=== PATIENT | male | born 1990 | race Hispanic/Latino ===

== ENCOUNTER 2017-09-16 07:09 | Emergency (ER) | payer SELFPAY ==
[~2017-09-16] VITALS: Ht 172.7 cm; Wt 70.0 kg
[2017-09-16] MEDS ORDERED: NAPROSYN500 MG PO (08:23)
[2017-09-16 08:50] VITALS: BP 133/85
== END 2017-09-16 08:50 | disposition home or self-care (01) | DRG 556 ==
LOC: ED 07:09
DX: M25.512 Pain in left shoulder (principal); S50.02XA Contusion of left elbow, initial encounter; V13.4XXA Pedal cycle driver injured in collision with car, pick-up truck or van in traffic accident, initial encounter; Y93.55 Activity, bike riding; Y92.488 Other paved roadways as the place of occurrence of the external cause

== ENCOUNTER 2018-04-01 23:29 | Emergency (ER) | payer SELFPAY ==
[~2018-04-01] VITALS: Ht 172.7 cm; Wt 79.2 kg
[~2018-04-01 23:29] MED LIST: NAPROSYN500 MG PO
[2018-04-01] MEDS ORDERED: TRAMADOL HCL50 MG PO (23:50)
[2018-04-02 00:01] VITALS: BP 139/71
== END 2018-04-02 00:01 | disposition home or self-care (01) | DRG 395 ==
LOC: ED 23:29
DX: K40.90 Unilateral inguinal hernia, without obstruction or gangrene, not specified as recurrent (principal); F17.210 Nicotine dependence, cigarettes, uncomplicated

== ENCOUNTER 2018-05-01 07:23 | Day surgery (SDC) | payer SELFPAY ==
[~2018-05-01] VITALS: Ht 172.7 cm; Wt 88.5 kg
[~2018-05-01 07:23] MED LIST changes: +TRAMADOL HCL50 MG PO
[2018-05-01] MEDS ORDERED: TORADOL PO (10:56)
[2018-05-01 12:01] VITALS: BP 112/65
== END 2018-05-01 12:00 | disposition home or self-care (01) | DRG 352 ==
LOC: ORM 07:23
PROVIDERS: ATTEND Surgery
PROC: 0YU60JZ Supplement Left Inguinal Region with Synthetic Substitute, Open Approach (ICD-10-PCS; principal; 2018-05-01)
DX: K40.90 Unilateral inguinal hernia, without obstruction or gangrene, not specified as recurrent (principal)

== ENCOUNTER 2019-08-03 20:16 | Emergency (ER) | payer SELFPAY ==
[~2019-08-03] VITALS: Ht 172.7 cm; Wt 89.0 kg
[~2019-08-03 20:16] MED LIST changes: +TORADOL PO
[2019-08-03] MEDS ORDERED: ZPAK PO (20:43)
[2019-08-03 20:50] VITALS: BP 143/89
== END 2019-08-03 20:50 | disposition home or self-care (01) | DRG 153 ==
LOC: ED 20:16
DX: J00 Acute nasopharyngitis [common cold] (principal); J32.9 Chronic sinusitis, unspecified

== ENCOUNTER 2020-01-01 | Emergency (ER) | payer SELFPAY ==
[~2020-01-01] MED LIST changes: +ZPAK PO
[2020-01-01] MEDS ORDERED: TAM75CAP PO (21:12)
--- NOTE | 2020-01-05 12:04 | NUR ---
Attempt to call COVID 19 results to patient. No answer.
--- NOTE | 2020-01-05 16:58 | NUR ---
Attempt to call COVID 19 results to patient. No answer.
--- NOTE | 2020-01-05 17:16 | NUR ---
Received call from Man. NATASHAID 19 results reported to patient. Encouraged Stay home - stay safe measures, frequent hand washing/hand sanitizing if necessary outings.
== END 2020-01-01 21:25 | disposition home or self-care (01) | DRG 153 ==
DX: J11.1 Influenza due to unidentified influenza virus with other respiratory manifestations (principal); Z20.828 Contact with and (suspected) exposure to other viral communicable diseases

== ENCOUNTER 2020-02-23 10:16 | Emergency (ER) | payer SELFPAY ==
[~2020-02-23 10:16] MED LIST changes: +TAM75CAP PO
[2020-02-23] MEDS ORDERED: ULTRAM50 M1 PO (11:53)
[2020-02-23] MEDS ORDERED: FLEXERIL PO (11:53)
[2020-02-23 12:21] VITALS: BP 118/78
== END 2020-02-23 12:07 | disposition home or self-care (01) | DRG 552 ==
LOC: ED 10:16
DX: M47.816 Spondylosis without myelopathy or radiculopathy, lumbar region (principal)

== ENCOUNTER 2020-12-07 10:45 | Emergency (ER) | payer OTHER ==
[~2020-12-07] VITALS: Ht 172.7 cm; Wt 88.0 kg
[~2020-12-07 10:45] MED LIST changes: +FLEXERIL PO; +ULTRAM50 M1 PO
[2020-12-07] MEDS ORDERED: TAM75CAP PO (11:32)
[2020-12-07 11:37] VITALS: BP 124/77
== END 2020-12-07 11:47 | disposition home or self-care (01) | DRG 153 ==
LOC: ED 10:45
DX: J11.1 Influenza due to unidentified influenza virus with other respiratory manifestations (principal); J45.909 Unspecified asthma, uncomplicated; Z20.822 Contact with and (suspected) exposure to COVID-19

== ENCOUNTER 2021-05-14 15:17 | Emergency (ER) | payer BC ==
[~2021-05-14] VITALS: Ht 172.7 cm; Wt 80.0 kg
[2021-05-14] MEDS ORDERED: BACLOFEN10 MG PO (16:29)
[2021-05-14 17:00] VITALS: BP 131/79
== END 2021-05-14 17:00 | disposition home or self-care (01) | DRG 552 ==
LOC: ED 15:17
DX: M47.816 Spondylosis without myelopathy or radiculopathy, lumbar region (principal); J45.909 Unspecified asthma, uncomplicated

== ENCOUNTER 2021-08-03 13:35 | Emergency (ER) | payer BC ==
[~2021-08-03] VITALS: Ht 172.7 cm; Wt 90.5 kg
[~2021-08-03 13:35] MED LIST changes: +BACLOFEN10 MG PO
[2021-08-03 16:25] LABS: HEMATOCRIT 43.8 % (39.0-50.0); HEMOGLOBIN 14.5 g/dl (14.0-18.0); MEAN CELL VOLUME 92.2 fL CALC (80.0-100.0); MEAN CORPUSCULAR HGB 30.5 pG CALC (26.0-32.0); MEAN CORPUSCULAR HGB CONC 33.1 g/dL CAL (32.0-36.0); NEUT# 6.11 thou/uL (1.82-7.42); RED BLOOD COUNT 4.75 mill/uL (4.70-6.10); RED CELL DISTRI WIDTH 13.4 % (11.5-15.5)
[2021-08-03 16:28] LABS: URINE BILIRUBIN - DIPSTICK NEGATIVE (NEGATIVE); URINE BLOOD DIPSTICK NEGATIVE (NEGATIVE); URINE COLOR YELLOW; URINE GLUCOSE - DIPSTICK NEGATIVE (NEGATIVE); URINE KETONE NEGATIVE (NEGATIVE); URINE LEUK ESTERASE NEGATIVE (NEGATIVE); URINE PH 7.5 (4.5-8.0); URINE PROTEIN - DIPSTICK NEGATIVE (NEG-TRACE); URINE UROBILINOGEN - DIPSTICK 0.2 E.U./dL (0.2)
[2021-08-03 16:35] LABS: ALBUMIN 4.3 g/dL (3.2-5.0); ALKALINE PHOSPHATASE 94 u/l (38-126); AMYLASE 77 u/l (30-110); ANION GAP 10 (6-22 (CALC)); BILIRUBIN, TOTAL 0.4 mg/dL (0.0-1.4); BUN 10 mg/dL (9-20); BUN/CREATININE RATIO 13 (12-20 (CALC)); CARBON DIOXIDE 28 mmol/l (22-30); CHLORIDE 105 mmol/l (95-108); CREATININE 0.8 mg/dL (0.7-1.3); GFR > 60 ML/MIN (>=60 (CALC)); GFR FOR AFR.AMER. > 60 ML/MIN (>=60 (CALC)); LIPASE 42 u/l (23-300); POTASSIUM 3.9 mmol/l (3.5-5.1); SGOT/AST 30 u/l (17-59); SODIUM 138 mmol/l (137-146); TOTAL PROTEIN 7.8 g/dL (6.3-8.2)
[2021-08-03 16:54] LABS: URINE NITRITE - DIPSTICK NEGATIVE (Negative)
[2021-08-03 17:57] VITALS: BP 124/62
== END 2021-08-03 17:57 | disposition home or self-care (01) | DRG 392 ==
LOC: ED 13:35
DX: R10.32 Left lower quadrant pain (principal); J45.909 Unspecified asthma, uncomplicated
CPT/HCPCS: Q9967

== ENCOUNTER 2022-01-11 14:30 | Emergency (ER) | payer BC ==
[2022-01-11] VITALS (8 sets, daily range): BP systolic 96–124; BP diastolic 43–105
[~2022-01-11] VITALS: Ht 172.7 cm; Wt 90.9 kg
[2022-01-11 15:49] LABS: HEMATOCRIT 44.2 % (39.0-50.0); HEMOGLOBIN 14.3 g/dl (14.0-18.0); IMMATURE GRANULOCYTES 0.1 % (0.0-5.0); MEAN CELL VOLUME 90.9 fL CALC (80.0-100.0); MEAN CORPUSCULAR HGB 29.4 pG CALC (26.0-32.0); MEAN CORPUSCULAR HGB CONC 32.4 g/dL CAL (32.0-36.0); NEUT# 7.09 thou/uL (1.82-7.42); RED BLOOD COUNT 4.86 mill/uL (4.70-6.10)
[2022-01-11 15:56] LABS: URINE BILIRUBIN - DIPSTICK NEGATIVE (NEGATIVE); URINE BLOOD DIPSTICK NEGATIVE (NEGATIVE); URINE COLOR YELLOW; URINE GLUCOSE - DIPSTICK NEGATIVE (NEGATIVE); URINE KETONE NEGATIVE (NEGATIVE); URINE LEUK ESTERASE NEGATIVE (NEGATIVE); URINE PROTEIN - DIPSTICK NEGATIVE (NEG-TRACE); URINE SPECIFIC GRAVITY 1.025; URINE UROBILINOGEN - DIPSTICK 0.2 E.U./dL (0.2)
[2022-01-11 15:59] LABS: URINE NITRITE - DIPSTICK NEGATIVE (Negative)
[2022-01-11 16:07] LABS: ALBUMIN 4.4 g/dL (3.2-5.0); ALKALINE PHOSPHATASE 85 u/l (38-126); ANION GAP 9 (6-22 (CALC)); BILIRUBIN, TOTAL 0.3 mg/dL (0.0-1.4); BUN 13 mg/dL (9-20); BUN/CREATININE RATIO 16 (12-20 (CALC)); CARBON DIOXIDE 27 mmol/l (22-30); CHLORIDE 104 mmol/l (95-108); CREATININE 0.8 mg/dL (0.7-1.3); GFR > 60 ML/MIN (>=60 (CALC)); GFR FOR AFR.AMER. > 60 ML/MIN (>=60 (CALC)); LIPASE 49 u/l (23-300); SGOT/AST 28 u/l (17-59); SODIUM 136 mmol/l (137-146); TOTAL PROTEIN 7.6 g/dL (6.3-8.2)
[2022-01-11] MEDS ORDERED: ULTRAM50 MG PO (18:11)
== END 2022-01-11 18:42 | disposition home or self-care (01) | DRG 392 ==
LOC: ED 14:30
DX: R10.32 Left lower quadrant pain (principal); J45.909 Unspecified asthma, uncomplicated
CPT/HCPCS: Q9967

== ENCOUNTER 2022-02-05 14:26 | Emergency (ER) | payer BC ==
[~2022-02-05] VITALS: Ht 172.7 cm; Wt 94.0 kg
[~2022-02-05 14:26] MED LIST changes: +ULTRAM50 MG PO
[2022-02-05 15:10] LABS: HEMATOCRIT 47.2 % (39.0-50.0); HEMOGLOBIN 15.4 g/dl (14.0-18.0); IMMATURE GRANULOCYTES 0.1 % (0.0-5.0); MEAN CELL VOLUME 91.3 fL CALC (80.0-100.0); MEAN CORPUSCULAR HGB 29.8 pG CALC (26.0-32.0); MEAN CORPUSCULAR HGB CONC 32.6 g/dL CAL (32.0-36.0); NEUT# 3.61 thou/uL (1.82-7.42); RED BLOOD COUNT 5.17 mill/uL (4.70-6.10)
[2022-02-05 15:26] LABS: ALBUMIN 4.7 g/dL (3.2-5.0); ALKALINE PHOSPHATASE 114 u/l (38-126); ANION GAP 16 (6-22 (CALC)); BILIRUBIN, TOTAL 0.4 mg/dL (0.0-1.4); BUN 15 mg/dL (9-20); BUN/CREATININE RATIO 17 (12-20 (CALC)); CARBON DIOXIDE 22 mmol/l (22-30); CHLORIDE 106 mmol/l (95-108); CREATININE 0.9 mg/dL (0.7-1.3); GFR > 60 ML/MIN (>=60 (CALC)); GFR FOR AFR.AMER. > 60 ML/MIN (>=60 (CALC)); LIPASE 48 u/l (23-300); POTASSIUM 3.7 mmol/l (3.5-5.1); SGOT/AST 48 u/l (17-59); SODIUM 140 mmol/l (137-146); TOTAL PROTEIN 8.6 g/dL (6.3-8.2)
[2022-02-05 16:11] LABS: URINE BILIRUBIN - DIPSTICK NEGATIVE (NEGATIVE); URINE BLOOD DIPSTICK NEGATIVE (NEGATIVE); URINE COLOR YELLOW; URINE GLUCOSE - DIPSTICK NEGATIVE (NEGATIVE); URINE KETONE NEGATIVE (NEGATIVE); URINE LEUK ESTERASE NEGATIVE (NEGATIVE); URINE PROTEIN - DIPSTICK TRACE mg/dL (NEG-TRACE); URINE SPECIFIC GRAVITY >=1.030; URINE UROBILINOGEN - DIPSTICK 0.2 E.U./dL (0.2)
[2022-02-05 16:13] LABS: URINE NITRITE - DIPSTICK NEGATIVE (Negative)
[2022-02-05 18:01] VITALS: BP 120/80
== END 2022-02-05 18:08 | disposition home or self-care (01) | DRG 392 ==
LOC: ED 14:26
PROVIDERS: Nurse Practitioner
DX: R19.7 Diarrhea, unspecified (principal); J45.909 Unspecified asthma, uncomplicated; Z20.822 Contact with and (suspected) exposure to COVID-19
CPT/HCPCS: Q9967

== ENCOUNTER 2022-02-15 13:07 | Emergency (ER) | payer BC ==
[~2022-02-15] VITALS: Ht 172.7 cm; Wt 85.6 kg
[2022-02-15] VITALS (11 sets, daily range): BP systolic 104–124; BP diastolic 58–77
[2022-02-15] MEDS ORDERED: NAPROXEN500 MG PO (15:30)
== END 2022-02-15 16:32 | disposition home or self-care (01) | DRG 563 ==
LOC: ED 13:07
PROC: 2W3FX1Z Immobilization of Left Hand using Splint (ICD-10-PCS; principal; 2022-02-15)
DX: S62.307A Unspecified fracture of fifth metacarpal bone, left hand, initial encounter for closed fracture (principal); J45.909 Unspecified asthma, uncomplicated; W22.09XA Striking against other stationary object, initial encounter; Y93.89 Activity, other specified; Y92.007 Garden or yard of unspecified non-institutional (private) residence as the place of occurrence of the external cause

== ENCOUNTER 2022-08-10 15:01 | Emergency (ER) | payer SELFPAY ==
[~2022-08-10] VITALS: Ht 172.7 cm; Wt 88.4 kg
[~2022-08-10 15:01] MED LIST changes: +NAPROXEN500 MG PO
[2022-08-10 16:33] VITALS: BP 141/83
[2022-08-10] MEDS ORDERED: MOTRIN800 MG PO (16:39)
[2022-08-10 17:00] VITALS: BP 153/90
== END 2022-08-10 17:25 | disposition home or self-care (01) | DRG 395 ==
LOC: ED 15:01
DX: K40.90 Unilateral inguinal hernia, without obstruction or gangrene, not specified as recurrent (principal); R22.2 Localized swelling, mass and lump, trunk; J45.909 Unspecified asthma, uncomplicated

== ENCOUNTER 2022-08-25 00:46 | Emergency (ER) | payer OTHER ==
[~2022-08-25] VITALS: Ht 172.7 cm; Wt 81.0 kg
[~2022-08-25 00:46] MED LIST changes: +MOTRIN800 MG PO
[2022-08-25] MEDS ORDERED: ULTRAM50 MG PO (01:32)
[2022-08-25 01:52] VITALS: BP 120/74
== END 2022-08-25 02:18 | disposition home or self-care (01) | DRG 395 ==
LOC: ED 00:46
DX: K40.90 Unilateral inguinal hernia, without obstruction or gangrene, not specified as recurrent (principal); F90.9 Attention-deficit hyperactivity disorder, unspecified type; J45.909 Unspecified asthma, uncomplicated

== ENCOUNTER 2022-09-16 10:57 | Day surgery (SDC) | payer OTHER ==
[~2022-09-16] VITALS: Ht 172.7 cm; Wt 88.9 kg
[2022-09-16] MEDS ORDERED: PERCOCET 5/321 COMBO PO (13:08)
[2022-09-16 15:26] VITALS: BP 112/72
== END 2022-09-16 15:34 | disposition home or self-care (01) | DRG 352 ==
LOC: ORM 10:57
PROVIDERS: ATTEND Surgery
PROC: 0YU64JZ Supplement Left Inguinal Region with Synthetic Substitute, Percutaneous Endoscopic Approach (ICD-10-PCS; principal; 2022-09-16)
DX: K40.91 Unilateral inguinal hernia, without obstruction or gangrene, recurrent (principal); D17.6 Benign lipomatous neoplasm of spermatic cord
CPT/HCPCS: C1781; J0131